=== PATIENT | female | born 1945 | race Caucasian/White ===

== ENCOUNTER → 2024-05-09 11:41 | Outpatient (REF) | payer OTHER, SELFPAY | LOC: PAVMRI 11:41 | PROVIDERS: ATTENDING PHYSICIAN Specialist; FAMILY PHYSICIAN Family Medicine | DX: D35.00 Benign neoplasm of unspecified adrenal gland (principal) | CPT/HCPCS: 74183; A9575 ==

== ENCOUNTER 2024-05-23 06:14 | Day surgery (SDC) | payer OTHER, SELFPAY ==
[2024-05-20 10:16] LABS: Urine Albumin Trace (Neg - Trace); Urine Bilirubin Negative (Negative); Urine Character Clear (Clear); Urine Color Yellow; Urine Glucose Negative (Negative); Urine Ketone Negative (Negative); Urine Leukocyte 2+ (Negative); Urine Nitrite Positive (Negative); Urine Occult Blood 4+ (Negative); Urine Specific Gravity 1.015 (<1.030); Urine Urobilinogen Negative (Neg - 1+)
[2024-05-20 10:23] LABS: Hematocrit 38.6 % (37.0-47.0); Mean Corp Hgb Conc. 33.7 g/dL (33.0-37.0); Mean Corpuscular Hgb 31.5 pg (27.0-31.0); Mean Corpuscular Volume 93.5 fL (81.0-99.0); Mean Platelet Volume 12.3 fL (7.4-10.4); Platelet Count 181 10^3/uL (130-400); Red Blood Cell Count 4.13 10^6/uL (4.20-5.40); Red Cell Dist. Width 12.4 % (11.5-14.5); White Blood Cell Count 4.8 10^3/uL (4.8-10.8)
[2024-05-20 10:29] LABS: APTT 28.5 Sec (23.4-35.0); INR 1.07; PT 13.8 Sec (11.4-14.6)
[2024-05-20 10:38] LABS: Urine Red Blood Cell 26-30 /HPF (0-2)
[2024-05-20 10:39] LABS: Urine Bacteria Moderate (Negative); Urine White Cell 40-50 /HPF (0-5)
[2024-05-20 10:53] LABS: Blood Urea Nitrogen 16 mg/dl (7-17); Calcium 9.4 mg/dl (8.4-10.2); Carbon Dioxide 25 mmol/L (22-30); Chloride 109 mmol/L (98-107); Glucose 120 mg/dl (70-99); Potassium 4.2 mmol/L (3.5-5.1); Sodium 141 mmol/L (135-145); eGFR > 60.00
[2024-05-20 14:20] VITALS: BMI 19.2
--- NOTE | 2024-05-21 12:05 | PTCARENOTE ---
Danielle in Dr. Fierro's office made aware of positive UA.
[2024-05-23] VITALS (8 sets, daily range): BP systolic 121–161; BP diastolic 60–90; BMI 19.2
[2024-05-23 07:04] LABS: Glucose - Point of Care 119 mg/dl (70-99)
[2024-05-23] MEDS: Pyridium 200 MG PO (09:07)
[2024-05-23] MEDS: DETROL LA 4 MG PO (09:07)
[2024-05-23 09:11] LABS: Glucose - Point of Care 151 mg/dl (70-99)
[2024-05-26 10:36] LABS: Stone Analysis Mass 36 mg
== END 2024-05-23 10:32 | disposition home or self-care (01) ==
LOC: SDS 06:14
PROVIDERS: ATTENDING PHYSICIAN Specialist; FAMILY PHYSICIAN Family Medicine
DX: N20.0 Calculus of kidney (principal)
CPT/HCPCS: 52356; 36415; 74018; 76000; 80048; 81003; 81015; 82365; 82962; 85027; 85610; 85730; 87086; 87147; 87186; 93005; C1758; C1894; C2617